=== PATIENT | female | born 1965 | race Caucasian/White ===

== ENCOUNTER 2018-05-24 15:32 | Outpatient (REF) | payer OTHER, SELFPAY ==
--- NOTE | 2018-05-24 15:15 | SKI_PTH ---
PATIENT: CHON SCHULTZ LOC: [facility] U#:[id number] AGE/SX: 53/F ROOM: RE05/24/[address]: Luis E Lindsey DO : 1965 BED: DIS: 05/24/2018 SPEC #: [id number] RECD: 05/25/18 11:28 STATUS: [place] REBon #: [id number] GLENN: 05/24/18 15:[address]: Luis E Lindsey DEPT: Surgical Specimen RECD BY: Ankita Mandel ENTERED: 05/25/18 11:29 SP TYPE: MARY LOU [place] DR: Ruth Melgar Tissues: 1 - SKIN BIOPSY(SHAVE/PUNCH) Procedures: GROSS AND MICRO LEVEL 4 Comments: [id number]
== END 2018-05-24 15:52 ==
LOC: LBN 15:32
PROVIDERS: PCP Nurse Practitioner; Visit Provider Otolaryngology Otolaryngology/Facial Plastic Surgery
DX: D10.39 Benign neoplasm of other parts of mouth (principal); B37.0 Candidal stomatitis
CPT/HCPCS: 88305

== ENCOUNTER 2018-05-31 14:31 | Outpatient (CLI) | payer OTHER, SELFPAY ==
[2018-06-01 11:49] LABS: Lyme Ab w Rflx to Lyme Confirm Negative
[2018-06-01 23:41] LABS: Anaplasma phagocytophilum Negative (Negative); B. miyamotoi PCR Negative (Negative); Babesia divergens/MO-1 Negative (Negative); Babesia duncani Negative (Negative); Babesia microti Negative (Negative); Ehrlichia chaffeensis Negative (Negative); Ehrlichia ewingii/canis Negative (Negative); Ehrlichia muris eauclairensis Negative (Negative)
== END 2018-05-31 14:51 ==
PROVIDERS: PCP Nurse Practitioner; Visit Provider Otolaryngology Otolaryngology/Facial Plastic Surgery
DX: T73.2XXA Exhaustion due to exposure, initial encounter (principal); W57.XXXA Bitten or stung by nonvenomous insect and other nonvenomous arthropods, initial encounter; R53.83 Other fatigue
CPT/HCPCS: 36415; 86618; 87798